=== PATIENT | female | born 1965 | race Caucasian/White ===

== ENCOUNTER → 2019-12-06 08:26 | Outpatient (CLI) | payer BC, SELFPAY ==
--- NOTE | 2019-12-06 08:26 | MM_ITS ---
PROCEDURE: MM DIG SCREENING MAMM BI W/CAD Digital Breast Tomosynthesis Included CLINICAL INDICATION: screening There is a history of breast cancer patient's maternal aunt and paternal aunt COMPARISON: Outside films have been sent for but have not arrived as yet TECHNIQUE: Standard CC and MLO images and 3D Tomosynthesis was obtained. R2 CAD reviewed. FINDINGS: The breasts are composed primarily of fat with very minimal scattered fibroglandular elements in each breast. There are scattered benign-appearing microcalcifications in each breast. Miguel images were reviewed and there are no suspicious lesions seen in either breast. There are no suspicious microcalcifications seen. IMPRESSION: Fatty type breast parenchyma with no suspicious lesions seen BI-RAD Category: 2 Benign Finding(s) FOLLOW-UP: 1YR 1 Year Follow-up (A letter has been sent to the patient regarding results of the study.) Dictated by: Dr. Celso Camara MD 01/11/2020 09:[address] Celso Camara MD in [place] 01/11/2020 09:29
== END ==
PROVIDERS: PCP Emergency Medicine; Visit Provider Emergency Medicine
DX: Z12.39 Encounter for other screening for malignant neoplasm of breast (principal)
CPT/HCPCS: 77063; 77067

== ENCOUNTER → 2021-05-15 09:29 | Outpatient (CLI) | payer BC, SELFPAY ==
--- NOTE | 2021-05-15 09:29 | MM_ITS ---
PROCEDURE INFORMATION: Exam: MG Screening 3D Mammography Exam date and time: 05/15/2021 9:29 AM Age: 56 years old Clinical indication: Encounter for screening mammogram for malignant neoplasm of breast; Additional info: Breast CA screening TECHNIQUE: Imaging protocol: Screening tomosynthesis and 2D mammography including computer-aided detection (CAD) when performed. COMPARISON: MG MM DIG SCREENING MAMM BI W/CAD 12/06/2019 8:40 AM FINDINGS: MAMMOGRAPHY: Breast composition: There are scattered areas of fibroglandular density. Mass: No new suspicious masses. Architectural distortion: No suspicious distortion. Calcifications: No suspicious calcifications. Asymmetric density: None. Skin thickening: None. Axillary adenopathy: None. IMPRESSION: No mammographic evidence of malignancy. Annual screening is recommended unless otherwise clinically indicated. ASSESSMENT: BI-RADS Category 1: Negative
== END ==
PROVIDERS: PCP Nurse Practitioner Family; Visit Provider Nurse Practitioner Family
DX: Z12.31 Encounter for screening mammogram for malignant neoplasm of breast (principal)
CPT/HCPCS: 77063; 77067

== ENCOUNTER → 2021-10-29 18:34 | Outpatient (CLI) | payer BC, SELFPAY ==
[2021-10-29 19:18] LABS: Basophils # 0.1 K/mm3 (0-0.2); Eosinophils # 0.1 K/mm3 (0.0-0.4); Eosinophils % 1.8 % (0.1-12.0); Hematocrit 45.9 % (37.0-47.0); Hemoglobin 15.3 g/dL (12.2-16.2); Lymphocytes # 2.2 K/mm3 (0.7-4.5); Lymphocytes % 32.5 % (10-50); Mean Corpuscular HGB Conc 33.3 g/dL (31.8-35.4); Mean Corpuscular Hemoglobin 30.3 pg (27.0-31.2); Mean Platelet Volume 10.9 fl (7.4-10.4); Monocytes # 0.3 K/mm3 (0.1-1.0); Monocytes % 5.1 % (1.7-9.3); Neutrophils # 4.1 K/mm3 (1.8-7.8); Neutrophils % 59.7 % (37.0-80.0); Platelet Count 157 K/mm3 (142-424); Red Blood Count 5.05 M/mm3 (4.20-5.40); Red Cell Distribution Width 13.4 % (11.5-17.5); White Blood Count 6.8 K/mm3 (4.8-10.8)
[2021-10-29 20:36] LABS: Alanine Aminotransferase 18 U/L (12-78); Albumin Level 4.4 g/dl (3.5-5.0); Albumin/Globulin Ratio 1.8 (1.1-1.8); Alkaline Phosphatase 71 U/L (38-126); Aspartate Amino Transferase 32 U/L (14-36); Bilirubin,Total 0.6 mg/dl (0.2-1.3); Blood Urea Nitrogen 11 mg/dl (7-17); Calcium 10.1 mg/dl (8.4-10.2); Carbon Dioxide 31 mmol/L (22.0-30.0); Chloride 97 mmol/L (98-107); Chol/HDL Ratio 2.1 (1-3.5); Cholesterol 222 mg/dl (140-200); Estimated Glomerular Filt Rate 74 ml/min (>60); GFR (African American) 89 ML/MIN (>60); Globulin 2.5 g/dL (1.3-3.2); Glucose 93 mg/dl (74-100); HDL Cholesterol 104 mg/dl (40-60); Sodium 135 mmol/L (136-145); Total Protein,Serum 6.9 g/dl (6.3-8.2); Triglycerides 72 mg/dl (30-150); VLDL Cholesterol 14 mg/dL (0-40)
[2021-10-29 20:54] LABS: Free Thyroxine Index 3.2 ug/dL (5.93-13.13); T4 (Thyroxine) 12.6 ug/dl (5.53-11.0); Triiodothryronine (T3) Uptake 25 % (23.5-40.5)
[2021-10-29 21:07] LABS: Thyroid Stimulating Hormone 2.96 uIU/mL (0.465-4.68)
== END ==
PROVIDERS: Visit Provider Nurse Practitioner Family
DX: E03.9 Hypothyroidism, unspecified (principal); M25.50 Pain in unspecified joint
CPT/HCPCS: 80053; 80061; 84436; 84443; 84479; 85025; 86431

== ENCOUNTER → 2022-02-12 16:47 | Outpatient (CLI) | payer BC, SELFPAY ==
[2022-02-12 18:37] LABS: Thyroid Stimulating Hormone 1.85 uIU/mL (0.465-4.68)
== END ==
PROVIDERS: PCP Nurse Practitioner Family; Visit Provider Nurse Practitioner Family
DX: E07.9 Disorder of thyroid, unspecified (principal)
CPT/HCPCS: 84436; 84443

== ENCOUNTER → 2022-05-09 08:31 | Outpatient (CLI) | payer BC, SELFPAY ==
[2022-05-08 18:54] LABS: T4 (Thyroxine) 14.1 ug/dl (5.53-11.0)
[2022-05-08 19:07] LABS: Thyroid Stimulating Hormone 2.14 uIU/mL (0.465-4.68)
== END ==
PROVIDERS: PCP Nurse Practitioner Family; Visit Provider Nurse Practitioner Family
DX: E03.9 Hypothyroidism, unspecified (principal)
CPT/HCPCS: 84436; 84443

== ENCOUNTER → 2023-02-26 16:20 | Outpatient (CLI) | payer BC, SELFPAY ==
[2023-02-26 18:12] LABS: Basophils # 0.1 K/mm3 (0-0.2); Basophils % 0.7 % (0.1-2.0); Eosinophils # 0.1 K/mm3 (0.0-0.4); Eosinophils % 1.4 % (0.1-12.0); Hematocrit 45.1 % (37.0-47.0); Hemoglobin 14.7 g/dL (12.2-16.2); Lymphocytes % 30.7 % (10-50); Mean Corpuscular HGB Conc 32.6 g/dL (31.8-35.4); Mean Corpuscular Hemoglobin 29.4 pg (27.0-31.2); Mean Corpuscular Volume 90.1 fl (81-99); Mean Platelet Volume 10.2 fl (7.4-10.4); Monocytes # 0.4 K/mm3 (0.1-1.0); Monocytes % 5.9 % (1.7-9.3); Neutrophils % 61.3 % (37.0-80.0); Platelet Count 142 K/mm3 (142-424); Red Blood Count 5.01 M/mm3 (4.20-5.40); Red Cell Distribution Width 13.3 % (11.5-17.5); White Blood Count 6.6 K/mm3 (4.8-10.8)
[2023-02-26 18:38] LABS: Alanine Aminotransferase 22 U/L (12-78); Albumin/Globulin Ratio 1.7 (1.1-1.8); Alkaline Phosphatase 79 U/L (38-126); Anion Gap 9.6 mEq/L (5-15); Aspartate Amino Transferase 32 U/L (14-36); Bilirubin,Total 0.7 mg/dl (0.2-1.3); Blood Urea Nitrogen 12 mg/dl (7-17); Calcium 9.9 mg/dl (8.4-10.2); Carbon Dioxide 29 mmol/L (22.0-30.0); Chloride 101 mmol/L (98-107); Cholesterol 213 mg/dl (140-200); Estimated Glomerular Filt Rate 73 ml/min (>60); GFR (African American) 89 ML/MIN (>60); Globulin 2.4 g/dL (1.3-3.2); Glucose 114 mg/dl (74-100); Potassium 3.6 mmoL/L (3.5-5.1); Sodium 136 mmol/L (136-145); Total Protein,Serum 6.4 g/dl (6.3-8.2); Triglycerides 95 mg/dl (30-150); VLDL Cholesterol 19 mg/dL (0-40)
[2023-02-26 18:49] LABS: Direct LDL Cholesterol 85.04 mg/dL (100-129)
[2023-02-26 18:54] LABS: Chol/HDL Ratio 1.9 (1-3.5); HDL Cholesterol 114 mg/dl (40-60)
[2023-02-26 18:55] LABS: Free Thyroxine Index 3.3 ug/dL (5.93-13.13); T4 (Thyroxine) 12.5 ug/dl (5.53-11.0); Triiodothryronine (T3) Uptake 26 % (23.5-40.5)
[2023-02-26 18:57] LABS: 25-OH Vitamin D, Total 43.4 ng/mL (30-100)
[2023-02-26 19:09] LABS: Thyroid Stimulating Hormone 2.27 uIU/mL (0.465-4.68)
[2023-02-26 19:20] LABS: Hemoglobin A1C 5.7 % (4.0-6.0)
== END ==
PROVIDERS: PCP Nurse Practitioner Family; Visit Provider Nurse Practitioner Family
DX: I10 Essential (primary) hypertension (principal); E04.9 Nontoxic goiter, unspecified; E66.9 Obesity, unspecified; Z68.41 Body mass index [BMI] 40.0-44.9, adult; Z79.899 Other long term (current) drug therapy
CPT/HCPCS: 80053; 80061; 82306; 83036; 84436; 84443; 84479; 85025

== ENCOUNTER → 2023-03-11 09:33 | Outpatient (CLI) | payer BC, SELFPAY ==
--- NOTE | 2023-03-11 09:33 | MM_ITS ---
PROCEDURE INFORMATION: Exam: MG Bilateral Screening 3D Mammography Exam date and time: 03/11/2023 9:27 AM Age: 58 years old Clinical indication: Screening mammogram TECHNIQUE: Imaging protocol: Bilateral Screening tomosynthesis and 2D mammography including computer-aided detection (CAD) when performed. COMPARISON: 1. MG MM DIG SCREENING MAMM BI W/CAD 05/15/2021 9:37 AM 2. MG MM DIG SCREENING MAMM BI W/CAD 12/06/2019 8:40 AM FINDINGS: MAMMOGRAPHY: Breast composition: The breasts are almost entirely fatty. Mass: None. Architectural distortion: No new or suspicious architectural distortion. Calcifications: Stable benign-appearing calcifications are present. No new or suspicious cluster of microcalcifications have developed. Asymmetric density: No new or suspicious asymmetric density is present Skin thickening: None. Axillary adenopathy: None. IMPRESSION: No mammographic evidence of malignancy. Recommend annual screening mammography unless otherwise clinically indicated. ASSESSMENT: BI-RADS category 2: Benign
--- NOTE | 2023-03-11 09:33 | US_ITS ---
FINAL REPORT CLINICAL HISTORY: Enlarged thyroid FINDINGS: Limited sonographic images of the thyroid were obtained. The thyroid is somewhat enlarged with a heterogeneous echotexture. The right lobe of the thyroid measures 5.1 x 2.0 x 1.7 cm. There is a solid, hypoechoic nodule in the lower pole measuring 8 x 7 x 7 mm consistent with TI-RADS category 4. The left lobe of the thyroid measures 5.0 x 2.2 x 2.1 cm. There is a solid, hypoechoic nodule in the lower pole measuring 10 x 9 x 7 mm consistent with TI-RADS category 4. The isthmus measures 0.52 cm. IMPRESSION: Bilateral thyroid nodules consistent with TI-RADS category 4. No follow-up is required as per TI-RADS criteria. Reviewed, Interpreted and Dictated by Benny Marie III, MD Transcribed by Italia Luo Authenticated and . [facility]
== END ==
LOC: RAD 09:33
PROVIDERS: PCP Nurse Practitioner Family; Visit Provider Nurse Practitioner Family
DX: E04.9 Nontoxic goiter, unspecified (principal); Z12.31 Encounter for screening mammogram for malignant neoplasm of breast
CPT/HCPCS: 76536; 77063; 77067

== ENCOUNTER → 2023-03-26 14:06 | Outpatient (CLI) | payer BC, SELFPAY | PROVIDERS: PCP Nurse Practitioner Family; Visit Provider Nurse Practitioner Family | DX: G47.33 Obstructive sleep apnea (adult) (pediatric) (principal); I10 Essential (primary) hypertension; R06.83 Snoring | CPT/HCPCS: G0399 ==

== ENCOUNTER → 2023-04-16 08:17 | Outpatient (CLI) | payer BC, SELFPAY | PROVIDERS: PCP Nurse Practitioner Family; Visit Provider Nurse Practitioner | DX: E04.1 Nontoxic single thyroid nodule (principal) ==

== ENCOUNTER 2024-07-07 16:30 | Outpatient (CLI) | payer BC, SELFPAY ==
[2024-07-07 18:30] LABS: Basophils # 0.1 K/mm3 (0-0.2); Basophils % 0.7 % (0.1-2.0); Eosinophils # 0.1 K/mm3 (0.0-0.4); Eosinophils % 1.2 % (0.1-12.0); Hematocrit 46.1 % (37.0-47.0); Hemoglobin 14.5 g/dL (12.2-16.2); Lymphocytes # 1.8 K/mm3 (0.7-4.5); Mean Corpuscular HGB Conc 31.3 g/dL (31.8-35.4); Mean Corpuscular Hemoglobin 29.6 pg (27.0-31.2); Mean Corpuscular Volume 94.4 fl (81-99); Mean Platelet Volume 10.2 fl (7.4-10.4); Monocytes # 0.3 K/mm3 (0.1-1.0); Monocytes % 3.8 % (1.7-9.3); Neutrophils # 4.9 K/mm3 (1.8-7.8); Neutrophils % 69.4 % (37.0-80.0); Platelet Count 134 K/mm3 (142-424); Red Blood Count 4.88 M/mm3 (4.20-5.40)
[2024-07-07 18:57] LABS: Alanine Aminotransferase 25 U/L (12-78); Albumin Level 3.8 g/dl (3.5-5.0); Albumin/Globulin Ratio 1.5 (1.1-1.8); Alkaline Phosphatase 92 U/L (38-126); Anion Gap 8.4 mEq/L (5-15); Aspartate Amino Transferase 31 U/L (14-36); Bilirubin,Total 0.7 mg/dl (0.2-1.3); Blood Urea Nitrogen 14 mg/dl (7-17); Calcium 9.9 mg/dl (8.4-10.2); Carbon Dioxide 28 mmol/L (22.0-30.0); Chloride 103 mmol/L (98-107); Chol/HDL Ratio 2.2 (1-3.5); Cholesterol 230 mg/dl (140-200); Estimated Glomerular Filt Rate 85 ml/min (>60); GFR (African American) 103 ML/MIN (>60); Globulin 2.6 g/dL (1.3-3.2); Glucose 202 mg/dl (74-100); HDL Cholesterol 106 mg/dl (40-60); Potassium 3.4 mmoL/L (3.5-5.1); Sodium 136 mmol/L (136-145); Total Protein,Serum 6.4 g/dl (6.3-8.2); Triglycerides 125 mg/dl (30-150); VLDL Cholesterol 25 mg/dL (0-40)
[2024-07-07 19:08] LABS: Direct LDL Cholesterol 91.91 mg/dL (100-129)
[2024-07-07 19:11] LABS: 25-OH Vitamin D, Total 35.7 ng/mL (30-100)
[2024-07-07 19:14] LABS: Hemoglobin A1C 6.6 % (4.0-6.0)
[2024-07-07 19:25] LABS: Thyroid Stimulating Hormone 2.57 uIU/mL (0.465-4.68)
== END 2024-07-07 23:59 | disposition home or self-care (01) ==
LOC: LAB.DROPOF 07-10 12:44
PROVIDERS: PCP Family Medicine; Visit Provider Family Medicine
DX: N94.89 Other specified conditions associated with female genital organs and menstrual cycle (principal); I10 Essential (primary) hypertension; E66.01 Morbid (severe) obesity due to excess calories; Z68.41 Body mass index [BMI] 40.0-44.9, adult; R53.83 Other fatigue; Z13.1 Encounter for screening for diabetes mellitus; N39.0 Urinary tract infection, site not specified
CPT/HCPCS: 80050; 80053; 80061; 82306; 83036; 84443; 85025; 87086; 87210

== ENCOUNTER 2025-01-08 15:30 | Outpatient (CLI) | payer BC, SELFPAY ==
[2025-01-08 20:36] LABS: Albumin Level 4.1 g/dl (3.5-5.0); Albumin/Globulin Ratio 1.8 (1.1-1.8); Alkaline Phosphatase 82 U/L (38-126); Anion Gap 7.8 mEq/L (5-15); Bilirubin,Total 0.5 mg/dl (0.2-1.3); Blood Urea Nitrogen 15 mg/dl (7-17); Calcium 9.7 mg/dl (8.4-10.2); Carbon Dioxide 30 mmol/L (22.0-30.0); Chloride 102 mmol/L (98-107); Estimated Glomerular Filt Rate 85 ml/min (>60); GFR (African American) 103 ML/MIN (>60); Globulin 2.3 g/dL (1.3-3.2); Glucose 154 mg/dl (74-100); Potassium 3.8 mmoL/L (3.5-5.1); Sodium 136 mmol/L (136-145); Total Protein,Serum 6.4 g/dl (6.3-8.2)
[2025-01-08 20:37] LABS: Aspartate Amino Transferase 31 U/L (14-36)
[2025-01-08 20:38] LABS: Alanine Aminotransferase 24 U/L (12-78)
[2025-01-08 21:31] LABS: Creatinine,Urine Random 48 mg/dL (Not Estab.); Microalbumin < 6.000 mg/L (0-16.7)
== END 2025-01-08 23:59 | disposition home or self-care (01) ==
LOC: LAB.DROPOF 01-09 15:23
PROVIDERS: PCP Family Medicine; Visit Provider Family Medicine
DX: E11.9 Type 2 diabetes mellitus without complications (principal)
CPT/HCPCS: 80053; 82043; 82570

== ENCOUNTER 2025-02-22 16:31 | Outpatient (CLI) | payer BC, SELFPAY ==
--- OUTSIDE RECORDS SUMMARY | 2025-02-22 16:34 | XMS_ITS | Data Portability ---
Author Organization DIANE [facility] [place] [facility] Address [address] [facility] [address] [place] [address] Care Team Providers Care Ic Designer Gate Arrays Name Role Phone CLINT CRAIG Primary Care Provider Assessment Encounter Date Assessment Date Assessment LastModified by Organization Details LastModified Time 06/26/2020 06/26/2020 ASSESSMENT: Healing left proximal humerus fracture. PLAN: Continue with therapy. Continue to work with restrictions of no lifting. See her back in a month. GALILEO-Tomasz Not available 06/26/2020 12:00:52 07/24/2020 07/24/2020 Assessment is that of improvement, left shoulder comminuted proximal humerus fracture with arthritis of the glenohumeral joint. Plan: Continue to work on therapy. I did explain to her the only way we can get rid of the crepitation and pain would be to do a shoulder replacement or at least hemiarthroplast y. She preferred to avoid that and will certainly proceed with that idea. Even if we were to consider it, she would have to have a fair amount of more healing in her proximal humerus before that would be a reasonable alternative. [email or web address] Not available 07/24/2020 12:56:38 08/21/2020 08/21/2020 PLAN: With the fracture that goes down the shaft, I would be very reluctant to try to do a total shoulder at least this early. She probably would require a long humeral stem if that was the case and I suggested that she go as far as she can and when she feels like she cannot tolerate the discomfort any, she would return and then it would be time to consider shoulder arthroplasty. GALILEO-Tomasz Not available 08/21/2020 23:22:23 Plan of Treatment Reminders Order Date Submit Date Provider Last Modified By Organization Details Last Modified Time Details Appointments None recorded. Lab None recorded. Referral None recorded. Procedures None recorded. Surgeries None recorded. Imaging None recorded. Medication Orders omeprazole 40 mg capsule,del ayed release 2022 023 [email or web address] 1 [facility] [address], [address] [place], [address], 12:34:44 Naprosyn 500 mg tablet 2019 020 [email or web address] [facility] [address], [address] [place], [address], 09:05:40 Patient TargetsNo targets recorded. Patient Instructions Encounter Date Encounter Id Patient Instructions Last Modified By Organization Details Last Modified Time 07/24/2020 [id number] shoulder arthritis: exercises [email or web address] Not available 07/24/2020 08:21:28 Spent {{15# }} total minutes with the patient today. Greater than 50% of this time was spent counseling/coordi nation of care as documented in my assessment and plan above. [email or web address] Not available 07/24/2020 08:22:27 08/21/2020 [id number] body mass index: care instructions [email or web address] Not available 08/21/2020 09:09:41 Body Mass Index: Care Instructions-LC [email or web address] Not available 08/21/2020 09:09:41 learning about healthy weight [email or web address] Not available 08/21/2020 09:09:41 05/13/2023 [id number] 1. Reviewed and discussed Thyroid US report from [facility] on 03/11/2023. 2. Laryngoscopy flex performed in office today. Full risks, complications, and benefits of non-operative intervention have been thoroughly discussed. Understanding was expressed, informed consent given, and we will proceed with the discussed treatment plan. There were no questions for me at the end of the office visit. 3. Recommends speaking to primary care doctor about Lisinopril. 4. Rx- Omeprazole 40 mg capsule. Take 1 capsule daily. 5. Discussed updated thyroid ultrasound in 6 months. 6. Follow up in 2-3 months for GERD. jose Not available 05/13/2023 10:01:03 Her throat symptoms including globus symptoms and mild dysphagia are potentially in part because of her lisinopril and in part because of silent GERD. Her fiberoptic laryngoscopy suggests GERD. She will talk to her physician about alternative treatment for her hypertension. I am starting omeprazole empirically. I reviewed her recent thyroid ultrasound. Her thyroid is normal in size and her 2 small nodules would not be causing her current symptoms and we talked about that today. I have simply recommend repeat thyroid ultrasound in 6 months. She has no family history of thyroid cancer. Not available 05/13/2023 10:02:10 08/26/2023 [id number] 1. Order thyroid ultrasound 2. F/u in 6 months [email or web address] Not available 08/26/2023 08:54:45 Her globus symptoms have resolved since stopping lisinopril and starting antireflux treatment. She has 2 very small thyroid nodules discovered on thyroid ultrasound 6 months ago and she continues to be asymptomatic and she has no family history of thyroid cancer. Routine follow-up ultrasound will be scheduled to make sure the nodules are stable. If they are stable then I would simply recommend yearly ultrasound for a few years to ensure continued stability. Not available 08/26/2023 08:59:13 Reason for Referral None Reported. Results Created Date Observation Date Name Description Value Unit Range Abnormal Flag Note LastModifiedBy Organization Detail LastModifiedTime 05/29/2005/29/2020 DESI, farzaneh richard [facility] [address] [place] [address] Hailey larson Name: SAAD Lisseth larson : [address]64 Hailey larson 7 Orderi ng Provid er: PAMELA Larson EXAM DATE: 2019 EXAM: XR LT HUMERU S HISTOR Y: Follow up of fractu re. COMPAR AMINA: 04/29/20 20 EARLE GS: Again seen is a commin uted fractu re of the surgic al neck of the left humeru s extend ing into the proxim al lakesha l shaft. This fractu re also extend s into the greate r tubero sity and head of the humeru s. This is unchan ged in alignm ent in compar amina to the prior study. There is medial impact ion and mild to modera te displa cement . There are mild degene rative change s. There is inferi or sublux ation and possib le disloc ation of the lakesha l head relati ve to the glenoi d. No other fractu re is seen. IMPRES SANDRA: 1. There is unchan ged alignm ent of the commin uted fractu re of the proxim al left humeru s. 2. There is inferi or sublux ation and possib le disloc ation of the lakesha l head relati ve to the glenoi d. Interp reted By: Ira harris MD Electr onical ly Signed By: Ira harris MD on 05/29/20 8:41 AM [email or web address] [facility] [place] [address] , [place], [address], 05/29/2020 16:03:05 08/21/20 20 08/21/2020 XR, shoul josie, 2 or [facility] [place] [address] [address] Patikevin t Name: SAAD MICHAEL Gingerkevin larson : [address] Patikevin t 7 Orderi ng Provid er: PAMELA Lrason EXAM DATE: 2019 EXAM: XR LT SHOULD ER COMPLE TE RADIOG RAPHIC VIEWS: 3 view left should er COMPAR AMINA: 2019 HISTOR Y: Again noted is the fractu re of the surgic al neck of the left humeru s which extend s to the proxim al left lakesha l diaphy sis. There is also involv ement of the greate r tubero sity. Consid erable interv al healin g is presen t at the fractu re site. Mild degene rative change s of the left should er. Alignm ent is improv ed with no defini te disloc ation or signif icant sublux ation. IMPRES SANDRA: Proxim al left lakesha l fractu re site with interv al healin g change s. Stable alignm ent Interp reted By: Hernan Vaughn MD Electr onical ly Signed By: Hernan Vaughn MD on 2019 9:57 AM [email or web address] [facility] [place] [address] , [place], [address], 08/22/2020 09:35:38 05/13/20 23 03/11/2023 US, thyro id No observ ation record ed. BARCODE Not Available 2022 15:05:22 09/02/20 23 09/02/2023 US, neck, soft tissu e [facility] [address] [facility] [place] [address] Patien t Name: SAAD larson : [address] Hailey l[address] 7 Orderi ng Provid er: ROHAN BRADY NO EXAM DATE: 2022 EXAM: US ECHO THYROI D OR PAROTI D CLINIC AL INFORM ATION: Histor y of thyroi d nodule s TECHNI QUE: Multip le sonogr aphic images of the thyroi d gland were obtain ed. COMPAR AMINA: None. FINDIN GS: Isthmu s measur es 0.7 cm in thickn ess. Right lobe measur es 5 x 2.7 x 2.1 cm. Left lobe measur es 5.4 x 2.3 x 2.1 cm. The gland is enlarg ed in size and hetero geneou s in echote xture. Subcen timete r bilate ral thyroi d nodule s are seen. The domina nt nodule on the right measur es 0.9 x 0.8 x 0.9 cm. The domina nt nodule on the left measur es 1 x 0.8 x 0.9 cm. They are solid hypoec hoic nodule s withou t calcif icatio ns. Catego ry TR-4. IMPRES SANDRA: Bilate ral TR-4 catego ry nodule s. TR4 lesion s are consid ered modera tely suspic ious. Becaus e they are less than 1.5 cm in maximu m diamet ers, FNA is not necess stephanie by ACR recomm endati ons. Follow -up may be obtain ed in one year's time. Interp reted By: Radha Mosqueda MD Electr onical ly Signed By: Radha Mosqueda MD on 023 3:40 PM [email or web address] [facility] [address] [place], [address], 09/09/2023 12:16:18 Result Notes None recorded. Problems Name Problem SNOMED Code Status Onset Date Resolution Date Notes Provider Name and Address Organization Details Recorded Time Depressive disorder 19462486 Active 2017 Verenice Loera [facility] 0 15:48:55 Hypertensi ve disorder 33453195 Active 2017 NICOLAS CRAFT PA-C [address] [place] [address], [address], [facility] 8 18:52:36 Vitamin D deficiency 80418358 Active 2017 Verenicedenise Loera [facility] 0 15:48:55 Obesity 002375607 Active 2017 Verenicedenise Loera [facility] 0 15:48:55 Hyperglyce mikhail 39855999 Active 2017 Verenciedenise Loera [facility] 0 15:48:55 Thrombocyt openic disorder 357912978 Active 2017 low platelets 04/08/18 Verenicedenise Loera [facility] 0 15:48:55 Polyp of colon 23349930 Active 2017 Verenicedenise Loera [facility] 0 15:48:55 Osteopenia 997693998 Active 2017 Verenicedenise Loera [facility] 0 15:48:55 Notes:colonoscopy -04/18/18 - 3 year f/u DEXA - 04/22/18 - osteopenia Problem Notes None recorded. Procedures Surgical History Date Name Laterality Status Provider Name and Address Organization Details Recorded Time 05/13/20 23 Laryngoscopy Flex completed [facility] 05/13/2023 10:00:38 04/22/20 18 DXA Low Bone Mass 1 - No Tx completed MELISSA FRAZIER MD [address] [place], [address], [facility] 04/22/2018 12:08:01 10/25/19 00 Total Hysterectomy completed NICOLAS CRAFT PA-C [address] [place], [address], [facility] 01/04/2018 17:58:57 Cholecystectomy completed NICOLAS Barton PA-C [address] [place], [address], [facility] 01/04/2018 17:59:07 Tonsillectomy completed NICOLAS CRAFT PA-C [address] [place], [address], [facility] 01/04/2018 17:59:12 Appendectomy completed NICOLAS CRAFT PA-C [address] [place], [address], [facility] 01/04/2018 17:59:22 Unlisted px foot/toes completed [facility] 04/29/2020 13:35:11 Imaging Results Imaging Date Name Status LastModified by Organiz ation Details LastModified Time 05/29/2020 XR, humerus [facility] [place] [address], [place], [address], 05/29/2020 16:03:05 08/21/2020 XR, shoulder, 2 or more view completed [facility] [place] [address], [place], [address], 08/22/2020 09:35:38 03/11/2023 US, thyroid completed BARCODE Information n ot available 05/13/2023 15:05:22 09/02/2023 US, neck, soft tissue completed [email or web address] [facility] [address] [place] [address], [address], 09/09/2023 12:16:18 Procedure Notes None recorded. Medical Equipment None Reported. Allergies Allergen ID Allergen Name Allergen Category Reaction Reaction Severity Criticality Documentation Date Start Date Code Code System Note Provider Name and Address Organization Details Recorded Time 674986 Product containin g penicilli n (product) medicatio n Not available Not available Not available 01/04/2018 83004 8001 SNOMED Kristine Swain [facility] 8 17:18:28 731311 shellfish derived food,medi cation Not available Not available Not available 01/04/2018 86383 UNK Kristine Swain [facility] 8 17:18:38 791886 Iodine and/or iodine compound (substanc e) Not available Not available Not available Not available 04/29/2020 11085 6004 SNOMED Jacque Arellano [facility] 0 13:31:01 Medications Name Sig Start Date Stop Date Status Note LastModified by Organization Details LastModified Time bupropion HCl SR 150 mg tablet,12 hr sustained -release TAKE 1 TABLET BY MOUTH ONCE DAILY active Not Available Not Available No t Available clarithro mycin 250 mg tablet 01/04 completed Not Available Not Available Not Available azithromy moiz 250 mg tablet TAKE 2 TABLETS BY MOUTH ON DAY 1, AND THEN TAKE 1 TABLET BY MOUTH ONCE A DAY ON DAY 2 THROUGH DAY 5 active Not Available Not Available No t Available ofloxacin 0.3 % eye drops INSTILL 2 DROPS INTO EACH EYE THREE TIMES DAILY FOR 7 DAYS 05/13 completed Not Available Not Available Not Available valacyclo vir 1 gram tablet TAKE 1 TABLET BY MOUTH EVERY 8 HOURS 05/13 completed Not Available Not Available Not Available Nystop 100,000 unit/gram topical powder APPLY POWDER TOPICALL Y THREE TIMES DAILY FOR 10 DAYS TO THE [facility] DIRECTED active Not Available Not Available No t Available lisinopri l 20 mg tablet TAKE 1 TABLET BY MOUTH ONCE DAILY 05/13 completed Not Available Not Available Not Available clindamyc in HCl 150 mg capsule TAKE ONE CAPSULE BY MOUTH EVERY 6 HOURS FOR dental infectio n active Not Available Not Available No t Available acyclovir 400 mg tablet TAKE 1 TABLET BY MOUTH ONCE DAILY FOR FEVER BLISTER 05/13 completed Not Available Not Available Not Available omeprazol e 40 mg capsule,d elayed release TAKE 1 CAPSULE BY MOUTH ONCE DAILY DIRECTED active Not Available Not Available No t Available aspirin 81 mg tablet,de layed release active Not Available Not Available Not Available bupropion HCl SR 100 mg tablet,12 hr sustained -release 01/04 completed increase d to 150 BID Not Available Not Available Not Available prednison e 10 mg tablets in a dose pack TAKE BY MOUTH DIRECTED ON INSIDE OF PACKAGE active Not Available Not Available No t Available losartan 100 mg-hydroc hlorothia zide 25 mg tablet TAKE 1 TABLET BY MOUTH ONCE DAILY active Not Available Not Available No t Available promethaz ine 25 mg tablet Take 1 tablet every 6-8 hours by oral route as needed. 05/13 completed Not Available Not Available Not Available lisinopri l 20 mg-hydroc hlorothia zide 25 mg tablet TAKE 1 TABLET BY MOUTH ONCE DAILY active Not Available Not Available No t Available hydrochlo rothiazid e 25 mg tablet TAKE 1 TABLET BY MOUTH ONCE DAILY 05/13 completed Not Available Not Available Not Available Vitamin D2 1,250 mcg (50,000 unit) capsule 01/04 completed Not Available Not Available Not Available fluticaso ne propionat e 50 mcg/actua tion nasal spray,sharee pension USE 1 SPRAY(S) IN EACH NOSTRIL ONCE DAILY 05/13 completed Not Available Not Available Not Available doxycycli ne hyclate 100 mg tablet TAKE 1 TABLET BY MOUTH TWICE DAILY FOR 10 DAYS 05/13 completed Not Available Not Available Not Available loratadin e 10 mg tablet TAKE 1 TABLET BY MOUTH ONCE DAILY active Not Available Not Available No t Available naproxen 500 mg tablet TAKE 1 TABLET BY MOUTH TWICE DAILY NEEDED FOR PAIN 05/13 completed Not Available Not Available Not Available chlorhexi dine gluconate 0.12 % mouthwash USE DIRECTED TWICE DAILY active Not Available Not Available No t Available lysine active Not Available Not Availa ble Not Available calcium 05/13 completed Not Available Not Available Not Available Vitamin D active Not Available Not Fabienne ilable Not Available GaviLyte- G 236 gram-22.7 4 gram-6.74 gram-5.86 gram oral solution DIRECTED 04/29 completed Not Available Not Available Not Available Contrave 8 mg-90 mg tablet,ex tended release 05/13 completed Not Available Not Available Not Available OxyContin 10 mg tablet,cr ush resistant ,extended release TK 1 T PO Q 12 H FOR 7 DAYS 05/13 completed Not Available Not Available Not Available Vitals Date Recorded Body height Body mass index (BMI) Body weight Pain severity - 0-10 verbal numeric rating [Score] - Reported Systolic blood pressure Diastolic blood pressure Provider Name and Address Organization Details Last Updated DateTime 0 175.26 cm 43.4 kg/m2 903554. 16 g 2 124 mm[Hg] 82 mm[Hg] [facility] 0 08:14:08 Date Recorded Body height Body mass index (BMI) Body weight Pain severity - 0-10 verbal numeric rating [Score] - Reported Systolic blood pressure Diastolic blood pressure Provider Name and Address Organization Details Last Updated DateTime 0 175.26 cm 43.4 kg/m2 799853. 16 g 3 120 mm[Hg] 80 mm[Hg] Jacque [facility] 0 08:01:23 Date Recorded Body height Body mass index (BMI) Body weight Pain severity - 0-10 verbal numeric rating [Score] - Reported Systolic blood pressure Diastolic blood pressure Provider Name and Address Organization Details Last Updated DateTime 0 175.26 cm 43.4 kg/m2 823630. 16 g 1 120 mm[Hg] 76 mm[Hg] Jacque [facility] 0 08:02:19 Date Recorded Body temperature Body weight Body mass index (BMI) Body height Heart rate Systolic blood pressure Diastolic blood pressure Provider Name and Address Organization Details Last Updated DateTime 3 98 [degF] 606946. 21 g 40.8 kg/m2 175.26 cm 89 /min 106 mm[Hg] 88 mm[Hg] [facility] 3 09:03:32 Date Recorded Body height Body mass index (BMI) Body weight Body temperature Provider Name and Address Organization Details Last Updated DateTime 08/26/2023 175.26 cm 43.3 kg/m2 371921.56 g 97.2 [degF] [facility] 08/26/2023 08:44:27 Social History Question Answer Notes LastModified by Organizat ion Details LastModified Time Tobacco Smoking Status Never Smoker NICOLAS CRAFT PA-C [address] [place], [address], [facility] 01/04/2018 18:03:45 Accident Related Injury Yes [email or web address] Information not available 04/29/2020 What Is Your Level Of Alcohol Consumption? Occasional Information not available 01/05/2018 What Is Your Level Of Caffeine Consumption? Occasional [email or web address] Information not available 04/29/2020 How Much Tobacco Do You Chew? None [email or web address] Information not available 04/29/2020 Are You Currently Employed? Yes Information not available 04/29/2020 Do You Or Have You Ever Used E-cigarettes Or Vape? 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 Right [email or web address] Information not available 04/29/2020 Which Hand Is Involved? Left Shoulder [email or web address] Information not available 04/29/2020 Rate The Severity Of Your Symptoms: (0-10 With 0=none And 10=worst Possible) 1 11/03 [email or web address] Information not available 08/21/2020 Date Of Injury: 04/06/2020 [email or web address] Informati on not available 04/29/2020 Have You Been Treated For This Problem Before? Yes [email or web address] Information not available 04/29/2020 How Long Have You Had These Symptoms? 04/06/2020 [email or web address] Information not available 04/29/2020 Will This Be Filed As Workers' Compensation? No [email or web address] Information not available 04/29/2020 What Was The Date Of Your Most Recent Tobacco Screening? 01/04/2018 Information not available 12/12/2019 Do You Or Have You Ever Used Smokeless Tobacco? Never Used Smokeless Tobacco Information not available 04/29/2020 How Much Tobacco Do You Smoke? No [email or web address] Information not available 04/29/2020 Do You Use Any Illicit Or Recreational Drugs? No [email or web address] Information not available 04/29/2020 How Many Years Have You Smoked Tobacco? 0 [email or web address] Information not available 04/29/2020 Work Related Injury? No [email or web address] Information not available 04/29/2020 Sex: Female Functional Status None recorded. Mental Status None recorded. Family History Relationship Description Onset Age of this Age Resolved Age Notes LastModified by Organization Details LastModified Time Unspecified Relation Arthritis [email or web address] Not available 01/05 12:02:52 Unspecified Relation Family history of malignant neoplasm [email or web address] Not available 2017 12:03:10 Unspecified Relation Osteoporosis [email or web address] Not available 12:03:55 Unspecified Relation Cerebrovascu lar accident [email or web address] Not available 12:04:26 Unspecified Relation Carcinoma of thyroid Mom Cousin niece Not available 08/27/2023 13:54:05 Father Dementia Not availabl e 01/05/2018 12:03:24 Mother Hypertensive disorder [email or web address] Not available 2017 12:03:40 Mother Disorder of thyroid gland [email or web address] Not available 2017 12:04:59 Medical History Condition Response Gout N Other N Kidney Stones N Depression Y COPD N Pneumonia N Arthritis N Blood Clot N Cancer N Stroke N Kidney Disease N Heart Conditions N Migraines N Skin Problems N Rheumatic Fever N Bleeding Disorder N Tuberculosis N Genetic Disorder N AIDS/HIV N Asthma N Included as Review of Systems Y Anxiety/Depression Y Thyroid Disease N Hernia N Glaucoma N Anesthesia Complications N Blood Thinners Y Alcohol Overuse/Alcohol Abuse N High Cholesterol N Liver Disease N Allergies/Hayfever Y Immune System Disorder N Heart Attack (NM) N Mental Illness N Neurological Problems N Diabetes N Seizures/Epilepsy N Sleep Apnea N Hypertension Y Osteoporosis Y Gynecological HistoryNo gynecological history recorded. Obstetrics History GPAL:G 0 P 0 0 0 0 Past Encounters Encounter ID Performer Location Encounter Start Date Encounter Closed Date Diagnosis/Indication Diagnosis SNOMED-CT Code Diagnosis ICD10 Code Diagnosis Note [id number] NICOLAS CRAFT PA-C [address] [place] [address] 01/04/2018 16:27:59 01/07/2018 14:37:25 Depressive disorder 02046634 F32.9 increase to wellbutrin 150 BID Hypertensive disorder 38 619356 I10 well controlled . continue current meds. History of total hysterectomy 462024999 Z90.710 sounds like they probably removed her cervix. Will try to obtain records to find out for sure. [id number] NICOLAS CRAFT PA-C [facility] [address] [place] [address] 04/04/2018 08:28:19 04/05/2018 13:25:49 Depressive disorder 24481906 F32.9 continue wellbutrin 150 BID Hypertensive disorder 38 965909 I10 well controlled . continue current meds. Adult heal th examination 616832243 Z00.00 recommende d routine dental and eye exams -- pt will schedule eye exam Screening for malignant neoplasm of colon 919663984 Z12.11 Screening for malignant neoplasm of breast 040433892 Z12.31 Menopause 326272739 Z78. 0 Viral screening 94360452 4 Z11.59 Administra tion of diphtheria, pertussis, and tetanus vaccine 597882570 Z23 gave printed script for Tdap Vitamin D deficiency 347 59180 E55.9 Obesity 419810801 E66.9 discussed that phentermin e likely isn't a good option -- may make her anxiety/pa lpitations worse. Pt wants to try contrave. if too expensive, discussed that we could try something like vyvanse but that is a controlled substance and she will need CSA/UDS/KA SPER. Pt will think about it and let me know if she wants to try this. [id number] LALO ARELLANO MD SURGERY SCHEDULE [address] [place] [address] 04/18/2018 11:05:39 04/18/2018 11:13:12 [id number] MELISSA FRAZIER MD BONE DENSITY [address] [address] 04/22/2018 10:18:48 04/22/2018 15:22:47 [id number] PAMELA BOOKER MD [facility] [place] [address] [place] [address] 04/29/2020 13:00:11 04/29/2020 14:14:44 Closed fracture of upper end of humerus 53024539 S42.292D Body mass index 30+ - obesity 338378728 Z68.41 [id number] PAMELA BOOKER MD [facility] [place] [address] [place] [address] 05/29/2020 08:23:01 05/29/2020 09:04:18 Closed fracture of upper end of humerus 16506855 S42.292D [id number] PAMELA BOOKER MD [facility]OP[facility] [place] [address] [place] [address] 06/26/2020 07:58:35 06/26/2020 08:44:36 Closed fracture of upper end of humerus [id number] S42.292D [id number] PAMELA BOOKER MD [facility] [id number] 6 07/24/2020 07:41:43 07/24/2020 08:23:19 Closed fracture of upper end of humerus [id number] S42.292D Localized, primary osteoarthritis of the shoulder region [id number] M19.012 Body mass index 30+ - obesity 150232953 Z68.41 [id number] PAMELA BOOKER MD [facility] [address] 6 08/21/2020 07:43:15 08/21/2020 08:51:32 Closed fracture of upper end of humerus [id number] S42.292D Body mass index 30+ - obesity 638954942 Z68.41 [id number] MD [address] [place] [address] 05/13/2023 08:32:53 05/13/2023 13:23:12 Dysphagia 89460044 R13.10 Dyspnea 542881825 R06.00 Thyroid nodule 971362465 E04.1 Thyroid US from 03/11/2023 at [facility]:I mpression: Bilateral thyroid nodules consistent with TI-RADS category 4. Left nodule: 10 x 9 x 7 mmRight nodule: 8 x 7 x 7 mm Feeling of lump in throat [id number] F45.8 Acid reflux 738604957 K2 1.9 [id number] MD NEVILLE [address] [place] [address] 08/26/2023 07:53:26 08/27/2023 04:55:17 Dysphagia 68534600 R13.10 resolved Dyspnea 592142826 R06.00 resolved Thyroid nodule 010442083 E04.1 Thyroid US from 03/11/2023 at [facility]:I mpression: Bilateral thyroid nodules consistent with TI-RADS category 4. Left nodule: 10 x 9 x 7 mmRight nodule: 8 x 7 x 7 mm Acid reflux 003590527 K2 1.9 Family his tory of Thyroid disorder 386223480 Z83.49 Mother, calcified nodules that were removed Health Concerns Section Related Observation LastModified by Organization Detai ls LastModified Time None Recorded Concern Status LastModified by Organization Details LastModified Time None Recorded Advance Directives Directive None Recorded Payers Encounter Date Sequence Insurance Name Policy Number Policy Byrnes Covered Member ID Byrnes Member ID Guarantor Name 06/26/2020 1 [place] [id number] Saad Alec [id number] Saad Alec 07/24/2020 1 [place] [id number] Saad Alec [id number] Saad Alec 08/21/2020 1 [place] [id number] Saad Alec [id number] Saad Alec 05/13/2023 1 [place] [id number] Saad Alec [id number] Saad Alec 08/26/2023 1 [place] [id number] Saad Alec [id number] Saad Alec Notes Date Note Type Note Provider Name and Address Organization Details Recorded Time 06/26/2020 text/html Left proximal humerus fracture on April 06, is now 2-1/2 months. 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 PAMELA BOOKER MD [address] [place] [address], [phone], [facility] 06/27/2020 09:38:21 07/24/2020 text/html Sustained a comminuted left proximal humerus fracture in an arm that previously had some arthritis. Had a fair amount of comminution, but has had minimal displacement. She has progressed through physical therapy. Does note some comminution and crepitance rather as she moves it. Has been improving using her hugh both at home and at therapy. 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 PAMELA BOOKER MD [address] [place] [address], [phone], [facility] 07/24/2020 13:15:51 08/21/2020 text/html Sustained a fracture on April 06 of this year. She is now 4-1/2 months. She is doing fairly well. Notes some limitation of motion crepitance in her shoulder. She is back to work, feels that she has improved, but notes she has a problem. PAMELA BOOKER MD [address] [place] [address], [phone], [facility] 08/22/2020 10:33:32 05/13/2023 text/html Saad is a 58 ye ar old female who comes in today for consultation at the request of Clint Craig Aprn for an evaluation of her thyroid. Saad states that she has difficulty swallowing occasionally. Certain foods, such as steak are more difficult to swallow. She also feels as though she gets out of breath easily. Her mother does have a history of thryoid problems. It calcified and she had to have it taken out and was found to be benign. She denies any acid reflux symptoms. She did have bloodwork performed which showed normal thyroid levels. Thyroid US from 03/11/2023 at [facility]:Impressio n: Bilateral thyroid nodules consistent with TI-RADS category 4. Left nodule: 10 x 9 x 7 mmRight nodule: 8 x 7 x 7 mm ROSAMARIA DAMON MD [address] [place] [address], [phone], [facility] 05/13/2023 10:02:24 08/26/2023 text/html aSad presents i n office today to follow up on dysphagia/thyroid nodule. The pt was last given Omeprazole 40mg for reflux symptoms. The pt has a hx of thyroid nodules as well, she is due for an updated ultrasound. The pt states her throat symptoms have resolved. Her PCP took her off of Lisinopril and her blood pressure has been well managed. US ultrasound thyroid done at [facility] 02/2023 8.7mm and [id number], present in the left and right thyroid. The pt does mention her mother had calcified nodules that had to be removed. ROSAMARIA DAMON MD [facility] [place], [phone], [place] [facility] 08/26/2023 08:59:28 OBGyn Episode No OBEpisode recorded.
--- NOTE | 2025-02-22 17:00 | MM_ITS ---
PROCEDURE INFORMATION: Exam: MG Bilateral Screening 3D Mammography Exam date and time: 02/22/2025 4:36 PM Age: 60 years old Clinical indication: Screening examination TECHNIQUE: Imaging protocol: Bilateral Screening tomosynthesis and 2D mammography including computer-aided detection (CAD) when performed. COMPARISON: 1. MG MM DIG SCREENING MAMM BI W/CAD 03/11/2023 9:27 AM 2. MG MM DIG SCREENING MAMM BI W/CAD 05/15/2021 9:37 AM FINDINGS: MAMMOGRAPHY: Breast composition: There are scattered areas of fibroglandular density. Mass: No suspicious masses. Architectural distortion: None. Calcifications: No suspicious calcifications. Asymmetric density: None. Skin thickening: None. Axillary adenopathy: None. IMPRESSION: No mammographic evidence of malignancy. Annual screening is recommended unless otherwise clinically indicated. ASSESSMENT: BI-RADS Category 1: Negative.
== END 2025-02-22 23:59 | disposition home or self-care (01) ==
LOC: RAD 16:32
PROVIDERS: PCP Family Medicine; Visit Provider Family Medicine
DX: Z12.31 Encounter for screening mammogram for malignant neoplasm of breast (principal)
CPT/HCPCS: 77063; 77067